=== PATIENT | female | born 1950 | race Caucasian/White ===

== ENCOUNTER → 2020-08-11 | Outpatient (CLI) | payer MEDICARE, BC ==
[~2020-08-11] MED LIST: ASCO-96 PO; AZIT500T PO; CETI-158 PO; CHOL500045 PO; ETHA400T PO; RIFA300C3 PO; budesonide NS
== END | disposition home or self-care (01) ==
LOC: STAR 11:33
PROVIDERS: ATTEND Otolaryngology
DX: Z01.812 Encounter for preprocedural laboratory examination (principal); Z20.828 Contact with and (suspected) exposure to other viral communicable diseases; J32.0 Chronic maxillary sinusitis; J34.2 Deviated nasal septum; J34.89 Other specified disorders of nose and nasal sinuses
CPT/HCPCS: 87635; 93005

== ENCOUNTER 2020-08-16 06:00 | Day surgery (SDC) | payer MEDICARE, BC ==
[~2020-08-16] VITALS: Ht 157.5 cm; Wt 60.4 kg
[2020-08-16] MEDS ORDERED: EPINEPHRINE TOPICAL SOLN 1 MG/ML, 30ML ONE (06:38)
[2020-08-16] MEDS ORDERED: FLUORESCEIN SODIUM 500 MG/5 ML ONE (06:38)
[2020-08-16] MEDS ORDERED: BACITRACIN OINT 500U/GM, 15 GM ONE (06:38)
[2020-08-16] MEDS ORDERED: LIDOCAINE/PF 1%, 30ML ONE ×2 (06:39→07:13)
[2020-08-16] MEDS ORDERED: EPINEPHRINE 1 MG/ML, 1ML ONE (06:39)
[2020-08-16] MEDS ORDERED: OXYMETAZOLINE NASAL SPRAY 0.05%,30ML ONE (06:39)
[2020-08-16 06:45] VITALS: BP 157/83
[2020-08-16] MEDS ORDERED: CHLORHEXIDINE 15 ML UDC MM ONE (07:00)
[2020-08-16] MEDS ORDERED: LACTATED RINGERS 1,000 ML IV SCH (07:00)
[2020-08-16] MEDS ORDERED: LABETALOL 5MG/ML, 20ML ONE (07:13)
[2020-08-16] MEDS ORDERED: MAGNESIUM SULFATE 1 GM/2 ML ONE (07:13)
[2020-08-16] MEDS ORDERED: DEXAMETHASONE 4 MG/ML, 1ML ONE (07:18)
[2020-08-16] MEDS ORDERED: GLYCOPYRROLATE 0.2MG/1ML, 5ML ONE (07:18)
[2020-08-16] MEDS ORDERED: LIDOCAINE-MPF 2% ,5ML ONE (07:18)
[2020-08-16] MEDS ORDERED: ROCURONIUM 10MG/ML,5ML ONE (07:18)
[2020-08-16] MEDS ORDERED: PROPOFOL 10 MG/ML, 20ML ONE (07:18)
[2020-08-16] MEDS ORDERED: MIDAZOLAM 1 MG/ML, 2ML ONE (07:19)
[2020-08-16] MEDS ORDERED: MIDAZOLAM 1 MG/ML, 2ML IV PRN (08:00)
[2020-08-16] MEDS ORDERED: FENTANYL PF 100 MCG/2ML IV PRN (08:00)
[2020-08-16] MEDS ORDERED: ALBUTEROL/IPRATROPIUM 2.5MG/0.5MG, 3 ML NPPB PRN (08:00)
[2020-08-16] MEDS ORDERED: DIPHENHYDRAMINE 50 MG/ML, 1ML IVPush PRN (08:00)
[2020-08-16] MEDS ORDERED: HALOPERIDOL 5 MG/ML IV PRN (08:00)
[2020-08-16] MEDS ORDERED: LABETALOL 5MG/ML, 20ML IV PRN (08:00)
[2020-08-16] MEDS ORDERED: METHOCARBAMOL 1,000 MG in DEXTROSE 5% 100 ML IV PRN (08:00)
[2020-08-16] MEDS ORDERED: LORazepam 2 MG/ML, 1ML IVPush PRN (08:00)
[2020-08-16] MEDS ORDERED: EPHEDRINE 50 MG/ML, 1ML IVPush PRN (08:00)
[2020-08-16] MEDS ORDERED: hydrALAzine 20 MG/ML, 1ML IV PRN (08:00)
[2020-08-16] MEDS ORDERED: MEPERIDINE/PF 25MG/0.5ML IVPush PRN (08:00)
[2020-08-16] MEDS ORDERED: KETOROLAC 30 MG/1 ML IVPush PRN (08:00)
[2020-08-16] MEDS ORDERED: ACETAMINOPHEN 325 MG TABLET PO PRN (08:00)
[2020-08-16] MEDS ORDERED: EPHEDRINE 50 MG/ML, 1ML IM PRN (08:00)
[2020-08-16] MEDS ORDERED: ONDANSETRON 2MG/ML, 2ML IVPush PRN (08:00)
[2020-08-16] MEDS ORDERED: METOCLOPRAMIDE 5 MG/ML, 2ML IVPush PRN (08:00)
[2020-08-16] MEDS ORDERED: DIAZEPAM 5 MG/ML, 2ML IVPush PRN (08:00)
[2020-08-16] MEDS ORDERED: CEFAZOLIN 1,000 MG ONE (09:11)
== END 2020-08-16 11:40 | disposition home or self-care (01) ==
LOC: OUT 06:00
PROVIDERS: ATTEND Otolaryngology
DX: J34.2 Deviated nasal septum (principal); J32.0 Chronic maxillary sinusitis; J34.89 Other specified disorders of nose and nasal sinuses; Z79.899 Other long term (current) drug therapy; Z88.5 Allergy status to narcotic agent
CPT/HCPCS: 30520; 31240; 31253; 31255; 31256; 88304; 88311; C1763; C1776; J0171; J0690; J1100; J2250; J2704; J3475; J7120

== ENCOUNTER → 2020-08-18 | Outpatient (CLI) | payer MEDICARE, BC | END | disposition home or self-care (01) | LOC: STAR 09:52 | PROVIDERS: ATTEND Anesthesiology | DX: Z20.828 Contact with and (suspected) exposure to other viral communicable diseases (principal) | CPT/HCPCS: 87635 ==

== ENCOUNTER 2020-08-23 10:32 | Day surgery (SDC) | payer MEDICARE, BC ==
[~2020-08-23] VITALS: Ht 157.5 cm; Wt 59.0 kg
[2020-08-23 10:47] VITALS: BP 134/77
[2020-08-23] MEDS ORDERED: OXYMETAZOLINE NASAL SPRAY 0.05%,30ML NAS ONE (13:34)
[2020-08-23] MEDS ORDERED: LIDOCAINE 2% SQ ONE (13:35)
[2020-08-23] MEDS ORDERED: LIDOCAINE 4%, 4 ML SYR/CANN TP ONE (13:38)
== END 2020-08-23 13:50 | disposition home or self-care (01) ==
LOC: OUT 10:32
PROVIDERS: ATTEND Otolaryngology
DX: J32.0 Chronic maxillary sinusitis (principal); J34.2 Deviated nasal septum; J34.89 Other specified disorders of nose and nasal sinuses
CPT/HCPCS: J2001